=== PATIENT | female | born 1965 ===

== ENCOUNTER 2019-08-23 13:30 | Outpatient (RCR) | payer OTHER, SELFPAY ==
--- NOTE | 2019-06-13 10:08 | PTOPEVAL ---
Thank you for referring Flora Paul to [facility]. Please review, sign, date and return this plan of care TRAMAINE. Pt referred to therapy due to chronic left hip pain. She demonstrates decreased joint range, muscle weakness, soft tissue restriction and decreased performance with functional mobility. She requires additional skilled therapy 2x/wk x 6 wk. I agree with and certify that the following plan of care is medically necessary. Referring Physician Date Admitting Provider: Attending Provider: PHYSICIAN NOT ON STAFF Referring Provider: TRISTIAN Carmen *PT Outpatient Evaluation Start: 06/13/19 09:18 Freq: Status: Active Protocol: Document 06/13/19 09:20 MARCO ANTONIO (Rec: 06/13/19 09:58 [facility] [id number]) Therapy Assessment Status Assessment Status Assessment Status Evaluation Outpatient Past Medical History Past Medical History Source of Past Medical History Patient Neurological History Hx Neurological Disorders No Significant History Cardiovascular History Hx Congestive Heart Failure Yes Hx Hypercholesterolemia Yes Hx Hypertension Yes Respiratory History Hx Chronic Obstructive Pulmonary Disease Yes: CPAP at night (COPD) Hx Sleep Apnea Yes Gastrointestinal History Hx Gastric Bypass Surgery Yes: 2005, obesity Genitourinary History Hx Genitourinary Disorders No Significant History Musculoskeletal History Hx Arthritis Yes: every where , knees and hands Hx Orthopedic Surgery Yes: arthroscopic hal knee x 2 Endocrine History Hx Diabetes Yes HEENT History Hx Other HEENT Disorders Yes: hearing aid left ear Integumentary History Hx Skin Disorders No Significant History Psychosocial History Hx Depression Yes Evaluation Information Problem Diagnosis left hip pain M25.552 Onset 2-3 years Subjective Information Pt started having numbness of Query Text:As Reported By Patient/ left leg 2-3 years ago wtih Family walking. She reports increased pain over the past 3 months with a pinching sensation in the hip region. Increased pain with initial standing and walking motion. She had therapy 6 months ago, but is not performing a HEP. Reports difficulty with prolonged standing > 10 minutes. She is able to pooja 20 ' of slow walking. She has increased pain with prolonged sitting wi
--- NOTE | 2019-07-10 10:46 | PCPTNOTE ---
Patient did not show up for scheduled appointment this date.
--- NOTE | 2019-07-17 11:22 | PTOPEVAL ---
Thank you for referring Flora Paul to [facility]. Please review, sign, date and return this plan of care TRAMAINE. Pt has received 7 therapy visits since 06/13/19 to address her hip pain. She reports improve pain and function as a result of therapy services. She demonstrates improved LE strength and performance with functional activities of sit<>stand and walking. She is progressing towards her therapy goals. Recommend additional PT 2x/wk x 4 wk. I agree with and certify that the following plan of care is medically necessary. Referring Physician Date Referring Provider: TRISTIAN Carmen *PT Outpatient Evaluation Start: 06/13/19 09:18 Freq: Status: Active Protocol: Document 07/17/19 10:00 MARCO ANTONIO (Rec: 07/17/19 10:26 [facility] [id number]) Therapy Assessment Status Assessment Status Assessment Status Re-evaluation Evaluation Information Problem Diagnosis left hip pain M25.552 Onset 2-3 years Subjective Information Denies any numbness of left LE Query Text:As Reported By Patient/ with daily activities. Denies Family any pinching of hip region. She did more activities over the weekend with increased pain and soreness. She was able to cut the grass for 15- 20 min before having to stop due to pain and soreness. 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 She is able to complete washing dishes without a rest. Pain Assessment Timing of Pain Assessment Timing of Pain Assessment Re-assessment Pain Scale Pain Scale Used Numeric (1 - 10) Self Report Pain Assessment Left Hip(s) Reported Pain Level 4 Pain Description Aching Pain Frequency Chronic,Continuous Lowest Pain Intensity 4 Greatest Pain Intensity 6 Pain Aggravating Factors Exercise/Activity,Prolonged Position,Sitting,Walking, Weight Bearing/Standing Pain Relief Interventions Used By Heat Patient Pain Score Pain Score 4: Self Report Lower Extremity Range of Motion Hip Range of Motion Left Reason Not Measured WNL/Right Hip Flexion Range of Motion - Active 105 Hip Range of Motion Limitations Pain Hip Range of Motion Comments hip flex limited by abdominal soft tissue Lower Extremity Muscle Strength Testing Hip Strength Right Hip Flexion Strength 4 Good Hip Extension Strength 4+ Good + Hip Abduction Strength 3- Fair
--- NOTE | 2019-07-26 10:17 | PCPTNOTE ---
Patient did not show up for scheduled appointment this date. She states she has a flat tire and is unable to make her appt today.
--- NOTE | 2019-08-02 09:48 | PCPTNOTE ---
Patient called & cancelled scheduled appointment this date due to family issues. She also cancelled her remaining appt. Will plan to DC her at this time.
--- NOTE | 2019-08-02 10:01 | PCPTNOTE ---
Admitting Provider: Attending Provider: PHYSICIAN NOT ON STAFF Patient:Flora Paul Date of :1965 Patient has not returned for any further treatments since 07/28/2019, therefore she will be discharged at this time. Patient?s initial visit was on 06/13/2019 09:15 and she had a total of 7 visits. She has attended 1 visit since her last update. The goals have been partially met. Thank you for referring this patient to [facility]. Please review, sign, date and return this discharge summary TRAMAINE. I have been updated about the patient's current status and I agree with discharge from the above service at this time. Referring Physician Date
--- NOTE | 2019-08-04 09:04 | PCPTNOTE ---
Patient called & cancelled scheduled appointment this date due to family issues.
--- NOTE | 2019-08-10 10:12 | PCPTNOTE ---
Pt called on 08/09/19 and requested to return to therapy. DC note has not been signed and returned from the MD. Insurance authorization continues to have visits authorized. Will re-eval pt and re-initiate treatment.
--- NOTE | 2019-08-10 11:39 | PTOPEVAL ---
Thank you for referring Flora Paul to [facility]. Please review, sign, date and return this plan of care TRAMAINE. Physical therapy was re-initiated by patient request due to increased pain and change in personal commitments. She reports increased pain with all daily activities, decreased LE strength, decreased functional mobility on 2 minute walk test and 5 rep sit<>stand. She would benefit from skilled therapy 2x/wk x 4-6 wk to address impairments. I agree with and certify that the following plan of care is medically necessary. Referring Physician Date Referring Provider: TRISTIAN Carmen Re-assessment *PT Outpatient Evaluation Start: 06/13/19 09:18 Freq: Status: Active Protocol: Document 08/10/19 07:59 MARCO ANTONIO (Rec: 08/10/19 08:47 [facility] [id number]) Therapy Assessment Status Assessment Status Assessment Status Re-evaluation Evaluation Information Problem Diagnosis left hip pain M25.552 Onset 2-3 years Subjective Information She reports the pain has Query Text:As Reported By Patient/ gotten worse with radiating Family pain into the knee. She has difficulty performing the HEP properly at home. She has increased pain with walking, prolonged standing. She has difficulty with walking at the store. 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 She did feel her hip got better initially, but when she stopped therapy her pain increased. Denies pain changes with lifting Pain Assessment Timing of Pain Assessment Timing of Pain Assessment Re-assessment Pain Scale Pain Scale Used Numeric (1 - 10) Self Report Pain Assessment Left Hip(s) Reported Pain Level 6 Pain Description Aching,Radiating,Soreness Pain Radiation Left Leg Pain Frequency Chronic Lowest Pain Intensity 3 Greatest Pain Intensity 8 Pain Aggravating Factors Prolonged Position,Walking, Weight Bearing/Standing Pain Behaviors None Pain Relief Interventions Used By Exercise,Heat Patient Pain Score Pain Score 6: Self Report Lower Extremity Range of Motion General Lower Extremity Range of Motion Reason Not Measured WFL/Left,WFL/Right Gross Lower Extremity Range of Motion ankle DF: 0 dg Comments Lower Extremity Muscle Strength Testing Hip Strength Right Hip Flexion Strength 4+ Good + H
--- NOTE | 2019-08-30 08:12 | PCPTNOTE ---
Patient called & cancelled scheduled appointments on 08/27, 08/29, 09/03 due to family emergency.
--- NOTE | 2019-09-07 15:15 | PCPTNOTE ---
Patient called & cancelled scheduled appointment this date due to no reason provided.
--- NOTE | 2019-09-18 10:09 | PCPTNOTE ---
Admitting Provider: Attending Provider: PHYSICIAN NOT ON STAFF Patient:Flora Paul Date of :1965 Discharge Note Patient has not returned for any further treatments since 08/23/2019, therefore she will be discharged at this time. Patient?s initial visit was on 06/13/2019 09:15 and she had a total of 13 visits with 7 cancel or no show visits.. The goals have been partially met. Thank you for referring this patient to [facility]. Please review, sign, date and return this discharge summary TRAMAINE. I have been updated about the patient's current status and I agree with discharge from the above service at this time. Referring Physician Date
== END 2019-09-11 23:59 | disposition home or self-care (01) ==
LOC: ANHPT 13:30
DX: M25.552 Pain in left hip (principal)
CPT/HCPCS: 97110; 97140; 97162